=== PATIENT | male | born 1980 | race Caucasian/White ===

== ENCOUNTER 2019-09-06 03:12 | Emergency (ER) | payer OTHER ==
[~2019-09-06] VITALS: Ht 185.4 cm; Wt 104.3 kg
[2019-09-06] MEDS ORDERED: SODIUM CHLORIDE 0.9% 1000ML 1,000 ML IV STA (03:14)
[2019-09-06] MEDS ORDERED: ONDANSETRON HCL INJ 2MG/ML 2ML 2 MG/ML VIAL IV STA (03:14)
[2019-09-06] MEDS ORDERED: KETOROLAC TROMETHAMINE 30 MG/ML VIAL IV STA (03:14)
--- OUTSIDE RECORDS SUMMARY | 2019-09-06 03:15 | XMS REPORT | Clinical Summary ---
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
--- NOTE | 2019-09-06 03:21 | Emergency Department Note ---
History of Present Illnes History of Present Illness Chief Complaint: Abdominal Complaints Stated Complaint: KIDNEY STONES History of Present Illness This is a 39 year old male with sudden onset of L flank pain. (+) N, denies f,chills. 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 Any updates have been documented here. Past Medical History Recent Fever: No Clinical Suspicion of Infectio: No Past Medical History: None Social History Smoking Cessation: Never Smoker Alcohol Use: None Any Illegal Drug Use: No Review of Systems Review of Systems Constitutional: no symptoms EENTM: no symptoms Cardiovascular: no symptoms Gastointestinal/Abdominal: nausea Genitourinary: pain (L flank) Musculoskeletal: no symptoms Integumentary: no symptoms Neurological: no symptoms Psychological: no symptoms Endocrine: no symptoms Hematological/Lymphatic: no symptoms Review of other systems All other systems reviewed and negative. Physical Exam Related Data Allergies: Coded Allergies: No Known Allergies (Unverified , 09/06/19) Physical Exam CONSTITUTIONAL Constitutional: well-developed, well-nourished HENT HENT: normocephalic, atraumatic, oropharynx clear/moist, nose normal HENT - Ear: left ext ear normal, right ext ear normal EYES Eyes: PERRL, conjunctivae normal NECK Neck: ROM normal PULMONARY Pulmonary: effort normal, breath sounds normal CARDIOVASCULAR Cardiovascular: regular rhythm, heart sounds normal, capillary refill normal, normal rate GASTROINTESTINAL Abdominal: left CVA tenderness GENITOURINARY Genitourinary: exam deferred SKIN Skin: warm, dry MUSCULOSKELETAL Musculoskeletal: ROM normal NEUROLOGICAL Neurological: alert, oriented x 3, no gross motor or sensory deficits PSYCHOLOGICAL Psychiatric/behavioral: mood/affect normal, judgement normal Results Laboratory Laboratory Laboratory Tests Test 09/06/19 05:09 09/06/19 03:12 Urine Color Yellow (YELLOW) Urine Clarity Clear (CLEAR) Urine pH 6 (5 - 7) Urine Specific Norris 1.010 (1.010-1.025) Urine Protein Trace (NEGATIVE) Urine Glucose (UA) Negative (NEGATIVE) Urine Ketones Negative (NEGATIVE) Urine Blood 1+ (NEGATIVE) Urine Nitrite Negative (NEGATIVE) Urine Bilirubin Negative (NEGATIVE) Urine Urobilinogen 0.2 mg/dL (0.2 - 1) Urine Leukocyte Esterase Negative (NEGATIVE) Urine RBC 21-50 /HPF (0-5) Urine WBC >50 /HPF (0-5) Urine Epithelial Cells Few /LPF (NONE) Urine Bacteria Rare /HPF (NONE) White Blood Count 9.31 x10e3/uL (4.8-10.8) Red Blood Count 4.98 x10e6/uL (4.3-5.7) Hemoglobin 14.6 g/dL (14.0-18.0) Hematocrit 43.0 % (38.2-49.6) Mean Corpuscular Volume 86.3 fL (81-99) Mean Corpuscular Hemoglobin 29.3 pg (28-32) Mean Corpuscular Hemoglobin Concent 34.0 g/dL (31-35) Red Cell Distribution Width 12.0 % (11.7-14.4) Platelet Count 275 x10e3/uL (140-360) Neutrophils (%) (Auto) 72.2 % (38.7-80.0) Lymphocytes (%) (Auto) 18.6 % (18.0-39.1) Monocytes (%) (Auto) 6.8 % (4.4-11.3) Eosinophils (%) (Auto) 1.5 % (0.0-6.0) Basophils (%) (Auto) 0.6 % (0.0-1.0) Neutrophils # (Auto) 6.7 (2.1-6.9) Lymphocytes # (Auto) 1.7 (1.0-3.2) Monocytes # (Auto) 0.6 (0.2-0.8) Eosinophils # (Auto) 0.1 (0.0-0.4) Basophils # (Auto) 0.1 (0.0-0.1) Absolute Immature Granulocyte (auto 0.03 x10e3/uL (0-0.1) Sodium Level 142 mmol/L (136-145) Potassium Level 3.3 mmol/L (3.5-5.1) Chloride Level 106 mmol/L (98-107) Carbon Dioxide Level 23 mmol/L (22-29) Anion Gap 16.3 mmol/L (8-16) Blood Urea Nitrogen 11 mg/dL (7-26) Creatinine 1.51 mg/dL (0.72-1.25) Estimat Glomerular Filtration Rate 52 ML/MIN (60-) BUN/Creatinine Ratio 7 (6-25) Glucose Level 130 mg/dL (74-118) Calcium Level 9.3 mg/dL (8.4-10.2) Total Bilirubin 0.3 mg/dL (0.2-1.2) Aspartate Amino Transf (AST/SGOT) 16 IU/L (5-34) Alanine Aminotransferase (ALT/SGPT) 22 IU/L (0-55) Alkaline Phosphatase 77 IU/L (40-150) Total Protein 6.9 g/dL (6.5-8.1) Albumin 4.0 g/dL (3.5-5.0) Globulin 2.9 g/dL (2.3-3.5) Albumin/Globulin Ratio 1.4 (0.8-2.0) Lipase 211 U/L (8-78) Lab results reviewed: Yes Imaging Y: Yes Impressions [place] [address] Patient Name: OVI RIVERA MR #: [id number] : 1980 Age/Sex: 39/M Req #: [id number] Adm Physician: Ordered by: TASH MATA DO Report #: [id number] Location: ER Room/Bed: Procedure: [id number] CT/CT ABDOMEN/PELVIS WO Exam Date: 09/06/19 Exam Time: 0400 REPORT STATUS: Signed EXAM: CT Abdomen and Pelvis WITHOUT contrast INDICATION: Flank pain COMPARISON: None. TECHNIQUE: Abdomen and pelvis were scanned utilizing a multidetector helical scanner from the lung base to the pubic symphysis without administration of IV contrast. Absence of intravenous contrast decreases sensitivity for detection of focal lesions and vascular pathology. Coronal and sagittal reformations were obtained. Routine protocol was performed. IV CONTRAST: None ORAL CONTRAST: None COMPLICATIONS: None RADIATION DOSE: Total DLP: 668 mGy*cm Estimated effective dose: (DLP x 0.015 x size factor) mSv CTDIvol has been reviewed. It is below the limits set by the Radiation Protocol Committee (RPC). Dose modulation, iterative reconstruction, and/or weight based adjustment of the mA/kV was utilized to reduce the radiation dose to as low as reasonably achievable. FINDINGS: LINES and TUBES: None. LOWER THORAX: Bibasilar atelectasis. No pleural effusion. HEPATOBILIARY: No focal hepatic lesions. No biliary ductal dilation. GALLBLADDER: No radio-opaque stones or sludge. No wall thickening. SPLEEN: No splenomegaly. PANCREAS: No focal masses or ductal dilatation. ADRENALS: No adrenal nodules. KIDNEYS/URETERS: Mild left perinephric inflammation. Minimal fullness of the left renal collecting system. Mild inflammation of the left ureter. No renal or ureteral calculus. No solid or cystic renal mass. GI TRACT: No abnormal distention, wall thickening, or evidence of bowel obstruction. Mild sigmoid diverticulosis. Appendix is normal. PELVIC ORGANS/BLADDER: The urinary bladder is partially distended. 4 mm stone within the dependent portion of the urinary bladder (series 3 image 184). LYMPH NODES: No lymphadenopathy. VESSELS: Unremarkable. PERITONEUM / RETROPERITONEUM: No free air or fluid. BONES: Unremarkable. SOFT TISSUES: Unremarkable. IMPRESSION: A 4 mm stone within the urinary bladder was likely recently passed through the left urinary tract. There is mild residual left perinephric inflammation and minimal fullness of the left intrarenal collecting system. No current obstructing collecting system lesion. Signed by: Leyla Yates MD on 09/06/2019 5:10 AM Dictated By: LEYLA YATES MD 9 Transcribed By: SAVI on 09/06/19509 COPY TO: TASH MATA DO~ Critical Care Time Subsequent provider I assumed direction of critical care for this patient from another provider of my specialty. Assessment & Plan Assessment & Plan Problems: (1) Renal insufficiency (2) Kidney stone on left side Assessment & Plan Plan : Patient passed stone during ED evaluation. Marked improvement in pain relief. Patient given f/u to Urology and given Rx for flomax and motrin . Plan to discharge to home Depart Disposition: HOME, SELF-CARE Last Vital Signs Date Time Temp Pulse Resp B/P (MAP) Pulse Ox O2 Delivery O2 Flow Rate FiO2 09/06/19 05:25 87 16 100 09/06/19 04:28 124/79 09/06/19 03:15 97.6 Medications in the ED Sodium Chloride 1,000 ml @ 0 mls/hr Q0M STAT IV Last administered on 09/06/19at 03:30; Admin Dose 999 MLS/HR; Start 09/06/19 at 03:14; Stop 09/06/19 at 03:15; Status DC Ondansetron HCl 4 mg ONCE STAT IV Last administered on 09/06/19at 03:30; Admin Dose 4 MG; Start 09/06/19 at 03:14; Stop 09/06/19 at 04:25; Status DC Ketorolac Tromethamine 30 mg ONCE STAT IV Last administered on 09/06/19at 03:30; Admin Dose 30 MG; Start 09/06/19 at 03:14; Stop 09/06/19 at 04:25; Status DC TASH MATA DO September 06, 2019 03:21
[2019-09-06 03:31] LABS: BASOPHILS # (AUTO) 0.1 (0.0-0.1); BASOPHILS % 0.6 % (0.0-1.0); EOSINOPHILS # (AUTO) 0.1 (0.0-0.4); EOSINOPHILS % 1.5 % (0.0-6.0); HEMOGLOBIN 14.6 g/dL (14.0-18.0); LYMPHOCYTES # (AUTO) 1.7 (1.0-3.2); LYMPHOCYTES % 18.6 % (18.0-39.1); MEAN CORPUSCULAR HEMOGLOBIN 29.3 pg (28-32); MEAN CORPUSCULAR VOLUME 86.3 fL (81-99); MONOCYTES # (AUTO) 0.6 (0.2-0.8); MONOCYTES % 6.8 % (4.4-11.3); NEUTROPHILS # (AUTO) 6.7 (2.1-6.9); NEUTROPHILS % 72.2 % (38.7-80.0); PLATELET COUNT 275 x10e3/uL (140-360); RED BLOOD COUNT 4.98 x10e6/uL (4.3-5.7)
[2019-09-06 03:54] LABS: ALBUMIN/GLOBULIN RATIO 1.4 (0.8-2.0); ANION GAP 16.3 mmol/L (8-16); CALCIUM 9.3 mg/dL (8.4-10.2); CREATININE, SERUM 1.51 mg/dL (0.72-1.25); POTASSIUM 3.3 mmol/L (3.5-5.1)
--- NOTE | 2019-09-06 05:14 | Diagnostic Imaging Report ---
EXAM: CT Abdomen and Pelvis WITHOUT contrast INDICATION: Flank pain COMPARISON: None. TECHNIQUE: Abdomen and pelvis were scanned utilizing a multidetector helical scanner from the lung base to the pubic symphysis without administration of IV contrast. Absence of intravenous contrast decreases sensitivity for detection of focal lesions and vascular pathology. Coronal and sagittal reformations were obtained. Routine protocol was performed. IV CONTRAST: None ORAL CONTRAST: None COMPLICATIONS: None RADIATION DOSE: Total DLP: 668 mGy*cm Estimated effective dose: (DLP x 0.015 x size factor) mSv CTDIvol has been reviewed. It is below the limits set by the Radiation Protocol Committee (RPC). Dose modulation, iterative reconstruction, and/or weight based adjustment of the mA/kV was utilized to reduce the radiation dose to as low as reasonably achievable. FINDINGS: LINES and TUBES: None. LOWER THORAX: Bibasilar atelectasis. No pleural effusion. HEPATOBILIARY: No focal hepatic lesions. No biliary ductal dilation. GALLBLADDER: No radio-opaque stones or sludge. No wall thickening. SPLEEN: No splenomegaly. PANCREAS: No focal masses or ductal dilatation. ADRENALS: No adrenal nodules. KIDNEYS/URETERS: Mild left perinephric inflammation. Minimal fullness of the left renal collecting system. Mild inflammation of the left ureter. No renal or ureteral calculus. No solid or cystic renal mass. GI TRACT: No abnormal distention, wall thickening, or evidence of bowel obstruction. Mild sigmoid diverticulosis. Appendix is normal. PELVIC ORGANS/BLADDER: The urinary bladder is partially distended. 4 mm stone within the dependent portion of the urinary bladder (series 3 image 184). LYMPH NODES: No lymphadenopathy. VESSELS: Unremarkable. PERITONEUM / RETROPERITONEUM: No free air or fluid. BONES: Unremarkable. SOFT TISSUES: Unremarkable. IMPRESSION: A 4 mm stone within the urinary bladder was likely recently passed through the left urinary tract. There is mild residual left perinephric inflammation and minimal fullness of the left intrarenal collecting system. No current obstructing collecting system lesion. Signed by: Harry Schmitz MD on 09/06/2019 5:10 AM
[2019-09-06 05:23] LABS: CLARITY,URINE CLEAR (CLEAR); COLOR,URINE YELLOW (YELLOW)
[2019-09-06 05:25] VITALS: BP 128/87
[2019-09-06 05:28] LABS: BILIRUBIN,URINE NEGATIVE (NEGATIVE); KETONES,URINE NEGATIVE (NEGATIVE); LEUKOCYTE ESTERASE ,URINE NEGATIVE (NEGATIVE); NITRITE,URINE NEGATIVE (NEGATIVE); PROTEIN,URINE DIPSTICK TRACE (NEGATIVE); URINE UROBILINOGEN 0.2 mg/dL (0.2 - 1)
[2019-09-06 05:37] LABS: BACTERIA,URINE RARE /HPF; EPITHELIAL CELLS,URINE FEW /LPF; RBC,URINE 21-50 /HPF (0-5); WBC,URINE (MAN) >50 /HPF (0-5)
== END 2019-09-06 05:59 | disposition home or self-care (01) ==
LOC: ER 03:12
DX: M54.5 Low back pain (principal); R10.12 Left upper quadrant pain; N20.0 Calculus of kidney; N28.9 Disorder of kidney and ureter, unspecified
CPT/HCPCS: 36415; 74176; 80053; 81001; 83690; 85025; 88300; 96374; 96375; 99283; J1885; J2405; J7030